=== PATIENT | male | born 1980 | race Caucasian/White ===

== ENCOUNTER 2017-10-19 09:36 | Outpatient (CLI) | payer OTHER | END 2017-10-19 09:37 | disposition home or self-care (01) | LOC: SC 09:36 | PROVIDERS: ATTEND Internal Medicine Pulmonary Disease | DX: G47.10 Hypersomnia, unspecified (principal); G47.8 Other sleep disorders; R06.83 Snoring | CPT/HCPCS: 99203; 99212 ==

== ENCOUNTER 2018-05-25 08:24 | Outpatient (CLI) | payer OTHER ==
--- NOTE | 2018-05-25 18:13 | MRI Report ---
Reason: LATERLA EPICONDYLITIS, RIGHT ELBOW Procedure Date: 05/25/2018 Accession Number: [id number] / [id number] Procedure: MRI - Elbow RT W/O CPT Code: FULL RESULT: EXAM: RIGHT ELBOW MRI WITHOUT CONTRAST EXAM DATE: 05/25/2018 09:31 AM. CLINICAL HISTORY: Lateral epicondylitis, right elbow. COMPARISON: None. TECHNIQUE: Multiplanar, multisequence T1-weighted and fluid-sensitive sequences of the elbow without contrast. Other: None. FINDINGS: Bones: No fractures or subluxations. No marrow edema. No bone lesions. Articular Cartilage: Unremarkable. Ligaments: Ulnar collateral ligament intact. Small focus of fluid in the substance of the humeral insertion radial collateral ligament. Distortion and irregularity at the humeral insertion lateral ulnar collateral ligament, particularly at the ulnar aspect (coronal images 15 and 16 of series 801 and series 1101 and axial images 16 through 18 of series 601 and series 1001). Some fibers radially may remain intact. Annular ligament intact. Tendons: Common flexor tendon origin normal in morphology. Mild thickening and edema at the common extensor tendon origin with small partial-thickness undersurface tear at the central fibers. The distal biceps, brachialis, and triceps tendons are unremarkable. Musculature: No edema or fatty atrophy. Other: The cubital tunnel and ulnar nerve are unremarkable. No effusion. The subcutaneous tissues are unremarkable. IMPRESSION: 1. Mild tendinopathy common extensor tendon origin with small partial-thickness undersurface tear. 2. Reactive edema and/or strain and possible intrasubstance tear humeral insertion radial collateral ligament. 3. High-grade partial-thickness tear humeral insertion lateral ulnar collateral ligament. Some fibers radially may remain intact. [facility] MUSCULOSKELET[facility] RADIOLOGY SECTION
== END 2018-05-25 08:25 | disposition home or self-care (01) ==
LOC: DI 08:24
PROVIDERS: ATTEND Orthopaedic Surgery
DX: S56.511A Strain of other extensor muscle, fascia and tendon at forearm level, right arm, initial encounter (principal); S53.441A Ulnar collateral ligament sprain of right elbow, initial encounter

== ENCOUNTER 2018-05-26 15:41 | Outpatient (CLI) | payer OTHER | END 2018-05-26 15:42 | disposition home or self-care (01) | LOC: SC 15:41 | PROVIDERS: ATTEND Nurse Practitioner Family | DX: G47.10 Hypersomnia, unspecified (principal); G47.8 Other sleep disorders; R06.83 Snoring; R53.83 Other fatigue | CPT/HCPCS: 99212; 99214 ==

== ENCOUNTER 2018-06-11 07:20 | Day surgery (SDC) | payer OTHER ==
[~2018-06-11 07:20] MED LIST: LACTATED RINGERS 1,000 ML IV ONE; ceFAZolin 2 GM/50 ML 2 GM/50 ML BAG IV ONE
[2018-06-11] MEDS ORDERED: BUPIVACAINE 0.25% PF 30 ML VIAL ONE (08:11)
--- NOTE | 2018-06-11 08:29 | ANESTHESIA ---
Pre-Anesthesia VS, & Labs - Diagnosis right ulnar nerve instability - Procedure right ulnar nerved decompression and transposition Vital Signs: Temp Pulse Resp BP Pulse Ox 36.1 C L 62 16 125/90 H 100 06/11/18 07:42 06/11/18 07:42 06/11/18 07:42 06/11/18 07:42 06/11/18 07:42 Height 5 ft 9 in Weight (kg) 88.45 kg - NPO >8 hours Home Medications and Allergies Home Medications: Ambulatory Orders Cetirizine [ZyrTEC] 10 mg PO DAILY 05/31/18 Naproxen [Naprosyn] 250 mg PO DAILY 05/31/18 Valacyclovir HCl [Valacyclovir] 500 mg PO DAILY 05/31/18 Cetirizine [ZyrTEC] 10 mg PO DAILY 05/31/18 Naproxen [Naprosyn] 250 mg PO DAILY 05/31/18 Valacyclovir HCl [Valacyclovir] 500 mg PO DAILY 05/31/18 Allergies/Adverse Reactions: Allergies Allergy/AdvReac Type Severity Reaction Status Date / Time No Known Drug Allergies Allergy Verified 05/31/18 13:01 Anes History & Medical History - Anesthetic History Anesthesia Complications: reports: No previous complications Family history of Anesthesia Complications: Denies Family history of Malignant Hyperthermia: Denies - Medical History Cardiovascular: reports: None Pulmonary: reports: None, Other (Uses inhalor for allergies. Last use 4 months ago) Gastrointestinal: reports: None Urinary: reports: None Neuro: reports: None Musculoskeletal: reports: None Endocrine/Autoimmune: reports: None Blood Disorders: reports: None Skin: reports: None Smoking Status: Former smoker (Quit 20 years ago) Psychosocial: reports: No issues indicated - Surgical History Orthopedic: Other Exam General: Alert, Oriented x3, Cooperative, No acute distress Dental: WNL Mouth Openin Fingerbreadth Neck Mobility: Normal Mallampati classification: II Thyromental Distance: 4-6 cm Respiratory: Lungs clear, Normal breath sounds, No respiratory distress, No accessory muscle use Cardiovascular: Regular rate, Normal S1, Normal S2, No murmurs Mental/Cognitive Status: Alert/Oriented X3 Plan Anesthesia Type: General Consent for Procedure(s) Verified and Reviewed: Yes Code Status: Attempt Resuscitation ASA classification: 1-Healthy patient Is this case an emergency?: No
[2018-06-11] MEDS ORDERED: BUPIVACAINE 0.25% PF 30 ML VIAL SUBQ ONE (09:24)
[2018-06-11] MEDS ORDERED: KETOROLAC 30 MG/ML VIAL IVP ONE (11:18)
[2018-06-11] MEDS ORDERED: ONDANSETRON 4 MG/2 ML VIAL IVP ONE (11:18)
[2018-06-11] MEDS ORDERED: MIDAZOLAM 2 MG/2 ML VIAL IVP ONE (11:18)
[2018-06-11] MEDS ORDERED: PROPOFOL 200 MG/20 ML VIAL IVP ONE (11:18)
[2018-06-11] MEDS ORDERED: DEXAMETHASONE 4 MG/ML VIAL IVP ONE (11:18)
[2018-06-11] MEDS ORDERED: HYDROmorphone 1 MG/ML CARPUJECT IVP ONE (11:18)
[2018-06-11] MEDS ORDERED: fentaNYL 100 MCG/2 ML VIAL IVP ONE (11:18)
[2018-06-11] MEDS ORDERED: fentaNYL 100 MCG/2 ML VIAL ONE (11:24)
[2018-06-11] MEDS ORDERED: HYDROmorphone 0.5 MG/0.5 ML SYRINGE IVP PRN (11:27)
[2018-06-11] MEDS ORDERED: oxyCODONE 5 MG TABLET PO PRN (11:27)
[2018-06-11] MEDS ORDERED: ONDANSETRON 4 MG/2 ML VIAL IVP PRN (11:27)
[2018-06-11] MEDS: HYDROmorphone 1 MG/ML CARPUJECT ONE ×2 (11:29→11:38)
[2018-06-11] MEDS: fentaNYL 100 MCG/2 ML VIAL ONE ×3 (11:32→11:45)
--- NOTE | 2018-06-11 11:32 | OPERATIVE REPORT ---
Operative Report - General Planned Procedure: Right Ulnar nerve decompression and sub-cutaneous transposition Pre-Op Diagnosis: Right ulnar nerve subluxation Procedure Performed: Right ulnar nerve decompression and anterior sub-cutaneous transposition Post Op Diagnosis: Right ulnar nerve subluxation - Procedure Note Primary Surgeon: Sg Jorge MD Secondary Surgeon: Isael Patino MD Anesthesia Technique: General LMA Estimated Blood Loss (mL): 75 Complications: None - Other Other Information/Narrative: Tourniquet Time: 80 minutes at 250mmHg. Specimen(s) Information: None Complication(s): None Condition: Stable to recovery Indications for Surgery: The patient is a 38-year-old right hand dominant male with a several year history of right elbow pain and numbness and tingling in the right ulnar digits. Exam demonstrated an unstable ulnar nerve which perched and subluxed with elbow flexion which re-created his symptoms. He had a positive Tinel and positive flexion compression test. EMG/NCS was performed but did not demonstrate any inj ury to the ulnar nerve. The patient was counseled on treatment options to include continued nonoperative treatment in the form of activity modification, splinting versus surgical release of the ulnar nerve and anterior subcutaneous transposition. Risks of surgery were discussed to include bleeding, infection, postoperative elbow stiffness, failure to relieve symptoms, damage to nerves, vessels, tendons, ligaments, bone and cartilage and anesthesia complications to include medication side effects and allergic reactions and even . After a long discussion, he wished to proceed. Findings: Unstable ulnar nerve at the cubital tunnel Descriptions of Procedure: The patient was met in the Preoperative Holding Area, at which time preoperative paperwork was confirmed. The right elbow was signed. The patient was then brought to Main Operating Room, placed supine on the Operating Room table, at which time pre procedure timeout was conducted to confirm correct patient, correct extremity and correct procedure and also to confirm presence and sterility of all required equipment and to confirm that antibiotics were being administered in the form of 2g of intravenous Ancef. After this was confirmed, general anesthesia was induced. The operative extremity was then prepped and draped over a hand table in the normal sterile fashion. A sterile well-padded tourniquet was placed on the proximal arm. A final timeout was conducted to confirm the correct patient, correct extremity and correct procedure and to confirm that antibiotics had been administered within 30 minutes of incision time. The operative extremity was then exsanguinated with an Esmarch bandage and tourniquet inflated to 250mmHg. An approximately 14 cm longitudinal incision was made centered posterior to the medial epicondyle proceeding distally approximately 6 cm and proximally 8 cm in line with the course of the ulnar nerve. The skin and dermis were sharply incised, followed by blunt dissection with tenotomy scissors through through through the subcutaneous fat. Care was taken to identify any crossing branches of the medial antebrachial cutaneous nerve. When these were identified they were dissected free and protected. The incision was carried deep, and Miller's ligament overlying the cubital tunnel was sharply incised, revealing the ulnar nerve. The nerve was grossly unstable within the cubital tunnel with with easy anterior subluxation with elbow flexion. The cubital tunnel was then released, and the dissection proceeded proximally and distally, circumferentially dissecting the soft tissue attachments of the ulnar nerve. Care was taken to identify the first sensory branch to the medial elbow capsule as well as the first motor branch to the FCU. Proximally the nerve was circumferentially freed to the point where the nerve transitions from anterior to posterior compartment, a segment of the medial intermuscular septum was excised. Once the nerve been adequately freed, its mobility was checked, and was found to be tethered distally with a muscular branch to the FCU, as well as the sensory branch the elbow capsule. The motor branch to the FCU was further freed up, both into the muscle belly as well as proximally to its takeoff from the ulnar nerve proper. This assisted with increased mobility, but the nerve was still tethered by the sensory branch of the capsule, the sensory branch was mobilized as much as possible, but did not allow adequate anterior translation of the nerve. The sensory branch was sacrificed with improved excursion of the nerve. The nerve was then placed anterior to the medial epicondyle in a robust soft tissue bed, and the elbow was taken through full range of motion to ensure no new points of kinking or compression. Satisfied that the nerve was not tethered or kinked in any way, a 1 cm x 1 cm proximally based fascial flap was raised from the medial epicondyle and secured to the dermis using 0 Vicryl in horizontal mattress fashion. This created a nice supportive sling for the ulnar nerve, and acted as a check rein to posterior translation. The arm was again taken through full range of motion and the ulnar nerve was noted to be free of tension, with good gliding. The wound was then copiously irrigated, and the tourniquet was let down. Manual pressure was held for 5 minutes, after which point bipolar bipolar cautery was used to coagulate any bleeding points. The wound was again irrigated and the subcutaneous tissue was closed using 2-0 Vicryl in interrupted fashion, followed by a running alternating simple/horizontal mattress suture of 3-0 nylon. The wound was dressed with Xeroform, plain 4x4 gauze, followed by webril, pound cotton, and a compressive Efra wrap. The patient was then awakened from general anesthesia without complication, brought to the Post Anesthesia Care for further recovery. Post-operative the patient endorsed normal sensation in the ulnar 2 digits and was able to abduct and adduct his fingers. Postoperative Plan: 1. The patient will be discharged from the Same Day Surgery Unit when discharge criteria are met. 2. The patient will remain in a compressive soft dressing until follow-up, this will be removed in clinic. 3. Patient can start gentle elbow range of motion on postoperative day 1-2 as his pain allows, to facilitate nerve gliding. 4. Expect return to full duty in 12 weeks.
[2018-06-11] MEDS ORDERED: LACTATED RINGERS 1,000 ML IV ONE (11:56)
[2018-06-11] MEDS ORDERED: oxyCODONE 5 MG TABLET ONE (12:22)
[2018-06-11] MEDS ORDERED: ONDANSETRON 4 MG/2 ML VIAL ONE (12:45)
[2018-06-11 12:55] VITALS: BP 112/71
== END 2018-06-11 07:21 | disposition home or self-care (01) ==
LOC: SDS 07:20
PROVIDERS: ATTEND Orthopaedic Surgery
PROC: 01S40ZZ Reposition Ulnar Nerve, Open Approach (ICD-10-PCS; principal; 2018-06-11 08:45)
DX: G56.21 Lesion of ulnar nerve, right upper limb (principal); Z87.891 Personal history of nicotine dependence
CPT/HCPCS: 64718; A9270; J0690; J1170; J7120

== ENCOUNTER 2018-06-14 19:29 | Outpatient (CLI) | payer OTHER | END 2018-06-14 19:30 | disposition home or self-care (01) | LOC: SC 19:29 | PROVIDERS: ATTEND Internal Medicine Pulmonary Disease | DX: G47.8 Other sleep disorders (principal); I10 Essential (primary) hypertension; G47.10 Hypersomnia, unspecified; R06.83 Snoring | CPT/HCPCS: 95810 ==

== ENCOUNTER 2018-07-28 12:48 | Outpatient (CLI) | payer OTHER | END 2018-07-28 12:49 | disposition home or self-care (01) | LOC: SC 12:48 | PROVIDERS: ATTEND Nurse Practitioner Family | DX: R06.83 Snoring (principal); R53.83 Other fatigue | CPT/HCPCS: 99212; 99214 ==

== ENCOUNTER 2018-12-22 15:26 | Outpatient (CLI) | payer OTHER ==
--- NOTE | 2018-12-23 11:57 | MRI Report ---
Reason: LOW BACK PAIN Procedure Date: 12/22/2018 Accession Number: [id number] / [id number] Procedure: MRI - Lumbar Spine W/O CPT Code: FULL RESULT: EXAM: MRI LUMBAR SPINE WITHOUT CONTRAST EXAM DATE: 12/22/2018 03:48 PM. CLINICAL HISTORY: 38-year-old man with low back pain. COMPARISON: None. TECHNIQUE: Multiplanar, multisequence T1-weighted and fluid-sensitive sequences of the lumbar spine from T12 to S1 without contrast. Other: None. FINDINGS: Spinal Canal: The conus terminates at L1. The conus medullaris and cauda equina are unremarkable. Alignment: Grade 1 retrolisthesis of L5 on S1 measures approximately 4-5 mm. No significant scoliosis. There is straightening of normal lumbar lordosis. Bone Marrow: Five [id number] lumbar vertebral bodies are present. No gross fractures or bone lesions. Degenerative endplate edema is present at L5-S1. Trace Modic type II chronic degenerative endplate changes are also present at L5-S1. Disk Levels/Facets: T12-L1: Unremarkable. L1-L2: Unremarkable. L2-L3: Unremarkable. L3-L4: Unremarkable. L4-L5: There is disk desiccation without significant height loss. Small broad-based disk bulge results in mild narrowing of the central canal and mild to moderate narrowing of the lateral recesses bilaterally. Disk osteophyte complex in the subarticular spaces and mild facet hypertrophy result in mild narrowing of the neural foramina bilaterally, right side worse than left. L5-S1: There is disk desiccation and moderate to severe height loss. Posterior disk osteophyte complex results in mild narrowing of the central canal and lateral recesses, left side worse than right. Disk osteophyte complex in the subarticular spaces result in moderate narrowing of the neural foramina bilaterally, right side worse than left. Musculature: Normal. No edema or fatty atrophy. Other: The partially visualized retroperitoneum is unremarkable. IMPRESSION: 1. Degenerative disk changes in the lower lumbar spine with prominent bony endplate edema at L5-S1. 2. Degenerative changes result in the following: - L4-L5: Mild narrowing of the central canal with mild to moderate narrowing of the lateral recesses bilaterally. Mild narrowing of the neural foramina bilaterally, right side worse than left. - L5-S1: Grade 1 retrolisthesis of L5 on S1. Mild narrowing of the central canal and lateral recesses, left side worse than right. Moderate narrowing of the neural foramina bilaterally, right side worse than left. Comment: The following findings are so common in adults without low back pain that while we report their presence, they must be interpreted with caution and in the context of the clinical situation. (Reference Gonsalo et al, Spine 2001) Prevalence of findings in patients without low back pain: Disk degeneration (any evidence): 92% Disk desiccation/T2 signal loss: 83% Disk height loss: 56% Disk bulge: 64% Disk protrusion: 32% Annular tear/high intensity zone: 38% [facility]
== END 2018-12-22 15:27 | disposition home or self-care (01) ==
LOC: DI 15:26
DX: M51.36 Other intervertebral disc degeneration, lumbar region (principal); M48.061 Spinal stenosis, lumbar region without neurogenic claudication; M51.37 Other intervertebral disc degeneration, lumbosacral region; M48.07 Spinal stenosis, lumbosacral region; M43.17 Spondylolisthesis, lumbosacral region; M47.816 Spondylosis without myelopathy or radiculopathy, lumbar region
CPT/HCPCS: 72148